=== PATIENT | female | born 1980 | race Caucasian/White ===

== ENCOUNTER 2022-04-30 10:54 | Outpatient (CLI) | payer MEDICARE, MEDICAID, SELFPAY ==
--- NOTE | 2022-04-30 11:04 | MR_ITS ---
WS: [id number] MRI LUMBAR SPINE NONCONTRAST TECHNIQUE: Sagittal T1, T2 and STIR imaging. Axial T1 and T2 imaging. Patient scanned feet 1st due to body habitus. Patient refused contrast. CLINICAL INFORMATION: RADICULOPATHY, LUMBAR REGION COMPARISON: None. FINDINGS: Mild lumbar curve. No acute compression. No high-grade central canal stenosis. Incidental hemangiomas L5 and S1. Schmorl's nodes in the lower thoracic spine. Disc space narrowing worse L5-S1. L1-L2: Normal L2-L3: No significant disc bulging. Tiny LEFT foraminal protrusion with mild LEFT foraminal narrowing . Slight contact of the exiting LEFT L2 nerve root. Mild facet arthropathy. L3-L4: Mild annular bulging. Slight effacement of ventral thecal sac. Slight narrowing of the LEFT hester barticular recess. LEFT eccentric disc bulge with mild LEFT foraminal narrowing. Mild facet arthropat hy. L4-L5: Mild annular bulging with slight effacement of ventral thecal sac. Mild LEFT foraminal narrowi ng. Mild facet arthropathy. L5-S1: Mild disc osteophytic ridging. Tiny shallow central protrusion. Tiny annular tear. LEFT eccent luis eduardo disc osteophyte ridging encroaches on the far exiting LEFT L5 nerve root. Spinal canal and RIGHT foramen are patent. Mild facet arthropathy. Visualized pelvic bony structures: Normal. Paravertebral soft tissues: Normal. MR/MR lumbar spine wo con* [id number] IMPRESSION: 1. Mild lumbar curve. No acute compression. No high-grade central canal stenos is. 2. Tiny central shallow disc protrusion L5-S1 with a tiny annular tear. Eccent luis eduardo LEFT disc bulging at this level slightly encroaches on the far exiting LEFT L5 nerve root laterally. 3. Tiny LEFT foraminal protrusion L2-L3 with mild LEFT foraminal narrowing. 4. Annular bulging L3-L4 with slight narrowing of the LEFT subarticular recess and mild LEFT foraminal narrowing. 5. LEFT eccentric disc bulging L4-L5 with mild LEFT foraminal
== END 2022-04-30 10:55 | disposition home or self-care (01) ==
LOC: RAD 10:58
PROVIDERS: Visit Provider Family Medicine
DX: M54.16 Radiculopathy, lumbar region (principal); M51.27 Other intervertebral disc displacement, lumbosacral region
CPT/HCPCS: 72148